=== PATIENT | female | born 1995 | race Caucasian/White ===

== ENCOUNTER → 2024-04-19 12:23 | Outpatient (BNVA) | payer MEDICAID, SELFPAY | PROVIDERS: Family Provider Family Medicine; Visit Provider Nurse Practitioner Family | DX: R30.0 Dysuria (principal) | CPT/HCPCS: 81003 ==

== ENCOUNTER 2025-01-04 20:28 | Emergency (ER) | payer SELFPAY ==
[2025-01-04 20:31] VITALS: BP 168/107; PULSE 87; RESP 16; TEMP 36.5; O2SAT 98; BMI 34.0
[2025-01-04 22:15] LABS: Basophils # 0.1 10^3/uL (0.0-0.1); Basophils % 0.5 %; Eosinophils # 0.2 10^3/uL (0.0-0.8); Eosinophils % 1.9 %; Lymphocytes # 3.1 10^3/uL (0.8-4.8); Lymphocytes % 27.5 %; Mean Corpuscular HGB Conc 34.4 g/dL (30-55); Mean Corpuscular Hemoglobin 30.8 pg (27-33); Mean Corpuscular Volume 89.7 fl (85-98); Mean Platelet Volume 10.1 fL (7.4-10.4); Monocytes # 0.9 10^3/uL (0.2-0.9); Monocytes % 8.3 %; Neutrophils # 6.98 10^3/uL (1.8-7.7); Neutrophils % 61.6 %; Nucleated Red Blood Cells % 0 %; Platelet Count 317 10^3/cmm (157-399); Red Blood Count 4.35 10^6/uL (3.85-5.65); Red Cell Distribution Width 11.9 % (12.1-15.1); White Blood Count 11.32 10^3/uL (3.29-11.43)
[2025-01-04 22:54] LABS: Troponin(5th) Baseline < 6 ng/L (0-10)
[2025-01-04 22:56] LABS: Anion Gap 15.9 (5-19); Blood Urea Nitrogen 13 mg/dL (6-20); Calcium 9.4 mg/dL (8.5-10.5); Carbon Dioxide 24 mmol/L (22-29); Chloride 105 mmol/L (98-107); Creatinine Clr Calc Pharmacy 81.1566; Glomerular Filtration Rate 58.3 mL/min (90-130); Glucose 81 mg/dL (65-115); Osmolality Calculated 291 mOsm/kg (285-295); Potassium 3.9 mmol/L (3.5-5.1); Sodium 141 mmol/L (136-145)
--- NOTE | 2025-01-04 23:13 | ED_ITS ---
HPI - Chest Pain 2 General: Chief Complaint: Chest Pain Stated Complaint: CP believes anxiety Time Seen by Provider: 01/04/25 21:45 History of Present Illness: Patient is a 29-year-old female with history of hypertension, compliant to lisinopril 10 mg daily that presents with chest pressure in the upper central area of her chest x 3 hours. Patient does have consistent ongoing headache, global, and frontal. She has had symptoms on and off with chest pressure and headache that were self resolving over the last 3 days. No shortness of breath, no nausea, no diaphoresis. No family history of early heart disease. Today, her symptoms were ongoing and consistent. Blood pressure at home was quite elevated despite taking her lisinopril. Associated symptoms: Deny abdominal pain, fever(s), nausea, palpitations or vomiting Related Data Previous Rx's ?Medication ?Instructions ?Recorded nitrofurantoin 100 mg PO Q12H 5 days #10 ca ps 04/19/24 monohydrate/macrocrystals 100 mg capsule (Macrobid) clonidine HCl 0.1 mg tablet 0.1 mg PO Q6H PRN hyperten sive 01/05/25 emergency 48 hours #30 tabs Allergies Allergy/AdvReac Type Severity Reaction Status Date / Time No Known Allergies Allergy Verified 04/19/24 12:34 Review of Systems 2 General: Reports: 10 or more systems reviewed and unremarkable except in HPI and below Const: Denies: fever(s), chills or body aches ENMT: Denies: throat pain or nasal discharge Card: Reports: chest pain; Denies: palpitations or dyspnea on exertion GI: Denies: abdominal pain, nausea or vomiting : Denies: flank pain or difficulty voiding Musc: Denies: neck pain, back pain or joint pain Skin/Breast: Denies: rash or pruritus Psych: Denies: anxiety or depression PFSH ED 2 PFSH: Social History Smoking and tobacco/nicotine status: former use of tobacco/nicotine Alcohol intake: never Substance/Drug Use: never Physical Exam 2 Const: COMMON NORMALS: no acute distress and patient oriented x3 HENMT: COMMON NORMALS: normocephalic and atraumatic HEAD & SCALP: n ormocephalic and atraumatic Resp: COMMON NORMALS: normal respiratory effort, No retractions, No use of accessory muscles, clear to auscultation bilaterally and percussion normal A USCULTATION: clear to auscultation bilaterally PERCUSSION: percussion normal Cardio: COMMON NORMALS: regular rate, regular rhythm, S1 normal heart sound present and S2 normal heart sound present RATE: regular rate RHYTHM: r egular rhythm HEART SOUNDS: S1 normal heart sound present and S2 normal heart sound present GI: COMMON NORMALS: Normal to inspection, nondistended, normoactive bowel sounds present, Soft to palpation and non-tender PALPATION: Yes Soft to palpation : COMMON NORMALS: Yes no CVA tenderness BLADDER/KIDNEY EXAM: Yes no CVA tenderness Back/Pelvis: COMMON NORMALS: no CVA tenderness Extremity: COMMON NORMALS: normal to inspection, full ROM, capillary refill normal and no pedal edema Neuro: COMMON NORMALS: patient oriented x3 Psych: COMMON NORMALS: mental status grossly normal and Normal thought process present THOUGHT PROCESS: Normal thought process present Course 2 Vital Signs: Vital signs: Vital Signs Temperature 97.7 F 01/04/25 20:31 Pulse Rate 59 L 01/05/25 01:04 Respiratory Rate 16 01/04/25 20:31 Blood Pressure 135/107 01/05/25 01:04 Pulse Oximetry 98 01/05/25 01:04 Oxygen Delivery Me thod Room Air 01/04/25 20:31 MDM - Chest Pain Medical Decision Making Patient is 29-year-old female with uncontrolled hypertension despite compliance, associated chest pressure without nausea or shortness of breath. I do suspect this is associated with her elevation of blood pressure. Will obtain routine workup with troponin, and repeat EKG. Initial EKG does not show any ST segment elevation. Lab Data 01/04/25 21:56 01/04/25 21:56 Laboratory Results WBC 11.32 10^3/uL (3.29-11.43) 01/04/25 21:56 RBC 4.35 10^6/uL (3.85-5.65) 01/04/25 21:56 Hgb 13.40 g/dL (11.27-16.99) 01/04/25 21:56 Hct 39.0 % (36-47) 01/04/25 21:56 MCV 89.7 fl (85-98) 01/04/25 21:56 MCH 30.8 pg (27-33) 01/04/25 21:56 MCHC 34.4 g/dL (30-55) 01/04/25 21:56 RDW 11.9 % (12.1-15.1) L 01/04/25 21:56 Plt Count 317 10^3/cmm (157-399) 01/04/25 21:56 MPV 10.1 fL (7.4-10.4) 01/04/25 21:56 Neut % (Auto) 61.6 % 01/04/25 21:56 Lymph % (Auto) 27.5 % 01/04/25 21:56 [place] % (Auto) 8.3 % 01/04/25 21:56 Eos % (Auto) 1.9 % 01/04/25 21:56 Baso % (Auto) 0.5 % 01/04/25 21:56 Neut # (Auto) 6.98 10^3/uL (1.8-7.7) 01/04/25 21:56 Lymph # (Auto) 3.1 10^3/uL (0.8-4.8) 01/04/25 21:56 [place] # (Auto) 0.9 10^3/uL (0.2-0.9) 01/04/25 21:56 Eos # (Auto) 0.2 10^3/uL (0.0-0.8) 01/04/25 21:56 Baso # (Auto) 0.1 10^3/uL (0.0-0.1) 01/04/25 21:56 Nucleated RBC % (auto) 0 % 01/04/25 21:56 Nucleated RBCs # 0.0 /100WBC 01/04/25 21:56 Sodium 141 mmol/L (136-145) 01/04/25 21:56 Potassium 3.9 mmol/L (3.5-5.1) 01/04/25 21:56 Chloride 105 mmol/L (98-107) 01/04/25 21:56 Carbon Dioxide 24 mmol/L (22-29) 01/04/25 21:56 Anion Gap 15.9 (5-19) 01/04/25 21:56 BUN 13 mg/dL (6-20) 01/04/25 21:56 Creatinine 1.1 mg/dL (0.5-0.9) H 01/04/25 21:56 GFR Calculation 58.3 mL/min (90-130) L 01/04/25 21:56 Glucose 81 mg/dL (65-115) 01/04/25 21:56 Calculated Osmolality 291 mOsm/kg (285-295) 01/04/25 21:56 Calcium 9.4 mg/dL (8.5-10.5) 01/04/25 21:56 Troponin T Baseline < 6 ng/L (0-10) 01/04/25 21:56 Troponin T 120 Minute < 6.0 ng/L (0-10) 01/05/25 00:03 Delta Troponin T 0 ABS# (0-10) 01/05/25 00:03 All radiology interpretation(s) finalized by discharge EKG Data EKG 1: Interpretation: Sinus rhythm, normal axis, LVH, QTc 400 Computer generated interpretation: Sinus rhythm, moderate intraventricular conduction delay, borderline EKG Discharge Plan Discharge Patient Disposition: Home Clinical Impression: Hypertension, Atypical chest pain Condition: Stable Prescriptions: New clonidine HCl 0.1 mg tablet 0.1 mg PO Q6H PRN (Reason: hypertensive emergency) 2 Days Qty: 30 0RF Rx Instructions: Take for blood pressure >160/>95 No Action nitrofurantoin monohyd/m-cryst [Macrobid] 100 mg capsule 100 mg PO Q12H 5 Days Qty: 10 0RF Rx Instructions: must administer with a meal/food Discharge Orders: Discharge ED (Routine); Ordered 01/05/25 Ordered By: Sharda Martinez Discharge Diet: Low Salt Patient Instructions: DASH Eating Plan (ED), Hypertension (ED) Activity Restrictions/Additional Instructions: as discussed Print Language: Brazilian Coding Level of Care Code ED Community Relations Assistant for Joseg Isabell
[2025-01-04 23:56] VITALS: BP 129/89; PULSE 73; O2SAT 98
--- NOTE | 2025-01-04 23:56 | ECG_ITS ---
[facility] Test Date: 2025-01-04 Pat Name: Tahira Daniels Department: Room: Gender: Female Manager Of Internal: : 1995 Requested By: Gui Hogue Order Number: [id number] Moralez MD: MAMIE DEL RIO Measurements Intervals [place] Rate: 62 P: 41 [place]: 167 QRS: 51 QRSD: 117 T: 50 QT: 402 QTc: 408 Interpretive Statements SINUS RHYTHM MODERATE INTRAVENTRICULAR CONDUCTION DELAY [110+ ms QRS DURATION] No previous ECG available for comparison Electronically Signed On 01-05-2025 23:51:56 CDT by MAMIE DEL RIO [email or web address]
[2025-01-05 00:23] LABS: Troponin 5 2HR < 6.0 ng/L (0-10); Troponin 5 2HR Delta 0 ABS# (0-10)
[2025-01-05 01:04] VITALS: BP 135/107; PULSE 59; O2SAT 98
== END 2025-01-05 01:07 | disposition home or self-care (01) ==
PROVIDERS: Emergency Medicine; Emergency Provider Physician Assistant
DX: R07.89 Other chest pain (principal); I10 Essential (primary) hypertension; Z87.891 Personal history of nicotine dependence
CPT/HCPCS: 36415; 80048; 84484; 85025; 93005; 99284

== ENCOUNTER 2025-07-16 13:40 | Emergency (ER) | payer SELFPAY ==
[2025-07-16 13:44] VITALS: BP 150/96; PULSE 88; RESP 16; TEMP 36.9; O2SAT 100; BMI 33.3
--- NOTE | 2025-07-16 13:50 | ECG_ITS ---
[facility] Date: 2025-07-16 Pat Name: Tahira Daniels Department: Room: Gender: Female Return To Vendor: : 1995 Requested By: Annemarie Barahona Order Number: [id number] Moralez MD: Bonilla Oconnor M.D. Measurements Intervals [place] Rate: 81 P: 51 TN: 158 QRS: 47 QRSD: 115 T: 42 QT: 376 QTc: 437 Interpretive Statements SINUS RHYTHM MODERATE INTRAVENTRICULAR CONDUCTION DELAY [110+ ms QRS DURATION] Compared to ECG 01/04/2025 23:56:08 No significant changes Electronically Signed On 07-16-2025 21:22:34 UNIVERSITY ADMINISTRATIVE ASSISTANT by Bonilla Oconnor M.D. [id number]
--- NOTE | 2025-07-16 14:03 | XRR_ITS ---
PROCEDURE INFORMATION: Exam: XR Chest Exam date and time: 07/16/2025 2:13 PM Age: 29 years old Clinical indication: Chest wall pain; Cp, hbp; Additional info: Chest pain TECHNIQUE: Imaging protocol: Radiologic exam of the chest. Views: 1 view. COMPARISON: No relevant prior studies available. FINDINGS: Lungs: No focal consolidation or other acute appearing pulmonary opacity. Pleural spaces: No significant pleural effusion. No pneumothorax. Heart/Mediastinum: Heart size is upper limits for normal in size given the AP projection. Mediastinal contours are smooth. Bones/joints: No acute osseous abnormality. XR/XR chest 1V portable [id number] IMPRESSION: No acute findings within the chest.
--- NOTE | 2025-07-16 14:09 | ED_ITS ---
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 She has a central left chest pressure. This started about 7 AM. No known cardiac history. No nausea or vomiting. No cough. No upper respiratory symptoms. Says it radiates into her back. Related Data Previous Rx's ?Medication ?Instructions ?Recorded nitrofurantoin 100 mg PO Q12H 5 days #10 ca ps 04/19/24 monohydrate/macrocrystals 100 mg capsule (Macrobid) Allergies Allergy/AdvReac Type Severity Reaction Status Date / Time No Known Allergies Allergy Verified 04/19/24 12:34 Review of Systems 2 Narrative: Constitutional symptoms: Negative except as documented in HPI. Skin symptoms: Negative except as documented in HPI. Eye symptoms: Negative except as documented in HPI. ENMT symptoms: Negative except as documented in HPI. Respiratory symptoms: Negative except as documented in HPI. Cardiovascular symptoms: Negative except as documented in HPI. Gastrointestinal symptoms: Negative except as documented in HPI. Genitourinary symptoms: Negative except as documented in HPI. Musculoskeletal symptoms: Negative except as documented in HPI. Neurologic symptoms: Negative except as documented in HPI. Psychiatric symptoms: Negative except as documented in HPI. Endocrine symptoms: Negative except as documented in HPI. PFSH ED 2 PFSH: Social History Smoking and tobacco/nicotine status: former use of tobacco/nicotine Alcohol intake: never Substance/Drug Use: never Physical Exam 2 Narrative: EXAM NARRATIVE: General: Alert, no acute distress. Skin: Warm, dry. Head: Normocephalic, atraumatic. Neck: Supple, trachea midline. Eye: Extraocular movements are intact. Ears, nose, mouth and throat: mucosa moist. Cardiovascular: Regular, Normal peripheral perfusion. Respiratory: Lungs are clear to auscultation, respirations are non-labored, breath sounds are equal, Symmetrical chest wall expansion. Gastrointestinal: Soft, Nontender, Non distended Musculoskeletal: Normal ROM, no deformity. Neurological: Alert and oriented, No focal neurological deficit observed. Psychiatric: Cooperative, appropriate mood & affect. 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 Patient has a history of hypertension last seen here in the emergency room for hypertension in December. I reviewed the patient's current home meds Patient reports her only medication is lisinopril Alternate historians: None Differential diagnosis for patient with chest pain includes but is not limited to and based on the above HPI, review of systems and physical exam: Pneumonia. unstable angina. angina. Acute coronary syndrome / NH. Pulmonary embolism. Costochondritis / musculoskeletal. Pleurisy. Pericarditis. Esophageal spasm. Pancreatitis. Cholecystitis. Orders placed to evaluate differential diagnosis based on the above differential, HPI and physical exam EKG: Time 1403. Rate 81. Normal sinus rhythm, No ST-T changes, no ectopy, normal CT & QRS intervals, This was reviewed and interpreted by myself the ER physician at 1406 Lab Review: Laboratory results were reviewed and interpreted by myself the emergency room physician. No leukocytosis. No anemia. No renal failure. Serial cardiac markers are negative. Reexamination: Patient remained stable. No increased work of breathing. No altered mental status. No focal motor deficits. Assessment and plan: Chest pain - Discharged home - Discussed plan with patient. Answered any questions. - Evaluation and treatment of this problem were appropriate in the emergency setting. Lab Data 07/16/25 14:13 07/16/25 14:13 Radiology Impressions Chest X-Ray 07/16/25 14:03 IMPRESSION: No acute findings within the chest. Laboratory Results WBC 6.46 10^3/uL (3.29-11.43) 07/16/25 14:13 RBC 4.68 10^6/uL (3.85-5.65) 07/16/25 14:13 Hgb 14.40 g/dL (11.27-16.99) 07/16/25 14:13 Hct 43.1 % (36-47) 07/16/25 14:13 MCV 92.1 fl (85-98) 07/16/25 14:13 MCH 30.8 pg (27-33) 07/16/25 14:13 MCHC 33.4 g/dL (30-55) 07/16/25 14:13 RDW 12.2 % (12.1-15.1) 07/16/25 14:13 Plt Count 340 10^3/cmm (157-399) 07/16/25 14:13 MPV 10.0 fL (7.4-10.4) 07/16/25 14:13 Neut % (Auto) 66.4 % 07/16/25 14:13 Lymph % (Auto) 25.1 % 07/16/25 14:13 [place] % (Auto) 6.3 % 07/16/25 14:13 Eos % (Auto) 1.4 % 07/16/25 14:13 Baso % (Auto) 0.6 % 07/16/25 14:13 Neut # (Auto) 4.29 10^3/uL (1.8-7.7) 07/16/25 14:13 Lymph # (Auto) 1.6 10^3/uL (0.8-4.8) 07/16/25 14:13 [place] # (Auto) 0.4 10^3/uL (0.2-0.9) 07/16/25 14:13 Eos # (Auto) 0.1 10^3/uL (0.0-0.8) 07/16/25 14:13 Baso # (Auto) 0.0 10^3/uL (0.0-0.1) 07/16/25 14:13 Nucleated RBC % (auto) 0 % 07/16/25 14:13 Nucleated RBCs # 0.0 /100WBC 07/16/25 14:13 Sodium 140 mmol/L (136-145) 07/16/25 14:13 Potassium 3.8 mmol/L (3.5-5.1) 07/16/25 14:13 Chloride 102 mmol/L (98-107) 07/16/25 14:13 Carbon Dioxide 26 mmol/L (22-29) 07/16/25 14:13 Anion Gap 15.8 (5-19) 07/16/25 14:13 BUN 11 mg/dL (6-20) 07/16/25 14:13 Creatinine 1.1 mg/dL (0.5-0.9) H 07/16/25 14:13 GFR Calculation 58.3 mL/min (90-130) L 07/16/25 14:13 Glucose 107 mg/dL (65-115) 07/16/25 14:13 Calculated Osmolality 290 mOsm/kg (285-295) 07/16/25 14:13 Calcium 9.6 mg/dL (8.5-10.5) 07/16/25 14:13 Total Bilirubin 0.4 mg/dL (0.15-1.2) 07/16/25 14:13 AST 15 U/L (0-32) 07/16/25 14:13 ALT 12 U/L (0-33) 07/16/25 14:13 Alkaline Phosphatase 61 U/L (35-105) 07/16/25 14:13 Troponin T Baseline < 6 ng/L (0-10) 07/16/25 14:13 Troponin T 60 Minute < 6.0 ng/L (0-10) 07/16/25 15:04 Delta Troponin T 0 ABS# (0-10) 07/16/25 15:04 Total Protein 6.8 g/dL (6.6-8.7) 07/16/25 14:13 Albumin 4.4 g/dL (3.5-5.2) 07/16/25 14:13 Globulin 2.4 g/dL (1.3-4.6) 07/16/25 14:13 All radiology interpretation(s) finalized by discharge Clincial Decision Support The following clinical decision support tools were used to aid in care of the patient HEART Score -> History: Slightly Suspicous, EKG: Normal, Age: Less than 45 yrs, Risk Factors: 1 or 2 Risk Factors, Troponin: Baseline Trop <16 ng/L. Resulting HEART Score: 1. Discharge Plan Discharge Patient Disposition: Home Clinical Impression: Chest pain, Hypertension Condition: Stable Prescriptions: No Action nitrofurantoin monohyd/m-cryst [Macrobid] 100 mg capsule 100 mg PO Q12H 5 Days Qty: 10 0RF Rx Instructions: must administer with a meal/food Discharge Orders: Discharge ED (Routine); Ordered 07/16/25 Ordered By: Annemarie Worrell Discharge Diet: Usual diet Discharge Activity: Increase activity as tolerated Patient Instructions: Chest Pain (ED), Opioid Safety, Pain Management, Patient Portal & Lane Instructions Activity Restrictions/Additional Instructions: Thank you for choosing [facility] for your healthcare needs today. You have been screened and evaluated and felt safe for discharge. Health conditions do change or evolve sometimes and as such it is important that you follow up with your Primary Doctor to be re checked, 3-5 days is a general good time frame for follow up. You are always welcome to return to the ED for re assessment if your symptoms are worsening or you have new concerns. (Please note that included in your discharge packet is information concerning opioid safety and pain management. This information is given to all patients who are discharged from the ER regardless of their discharge diagnosis or the medicines they usually take or are prescribed.) Print Language: Spanish Coding Level of Care Code ED Parts Identification Technician for Xochitl Whyte Heart Score HEART Score Components History: Slightly Suspicous EKG: Normal Age: Less than 45 yrs Risk Factors: 1 or 2 Risk Factors Troponin: Baseline Trop <16 ng/L HEART Score RESULT HEART Score: 1
[2025-07-16 14:23] LABS: Hematocrit 43.1 % (36-47); Hemoglobin 14.40 g/dL (11.27-16.99); Mean Corpuscular HGB Conc 33.4 g/dL (30-55); Mean Corpuscular Hemoglobin 30.8 pg (27-33); Mean Corpuscular Volume 92.1 fl (85-98); Nucleated Red Blood Cells % 0 %; Platelet Count 340 10^3/cmm (157-399); Red Blood Count 4.68 10^6/uL (3.85-5.65); White Blood Count 6.46 10^3/uL (3.29-11.43)
[2025-07-16 14:31] VITALS: BP 160/100; PULSE 88; O2SAT 95
[2025-07-16 14:51] LABS: Alanine Aminotransferase 12 U/L (0-33); Albumin Level 4.4 g/dL (3.5-5.2); Alkaline Phosphatase 61 U/L (35-105); Anion Gap 15.8 (5-19); Aspartate Amino Transferase 15 U/L (0-32); Blood Urea Nitrogen 11 mg/dL (6-20); Calcium 9.6 mg/dL (8.5-10.5); Carbon Dioxide 26 mmol/L (22-29); Chloride 102 mmol/L (98-107); Globulin 2.4 g/dL (1.3-4.6); Glucose 107 mg/dL (65-115); Osmolality Calculated 290 mOsm/kg (285-295); Potassium 3.8 mmol/L (3.5-5.1); Sodium 140 mmol/L (136-145); Total Protein 6.8 g/dL (6.6-8.7)
--- OUTSIDE RECORDS SUMMARY | 2025-07-16 14:52 | XMS_ITS | Encounter Summary ---
Author Organization [facility] Address [address] [place] [address] Care Team Providers Care Health Insurance Sales Agent Name Role Phone Abbi Segundo Primary Care Provider [phone] Encounter Details Date Type Department Care Team (Late st Contact Info) Description 01/19/2005 Emergency [facility] Emergency Department [address] [place] [address] Magnus Chairez MD NO ADDRESS ON FILE ABDOMINAL PAIN UNSPEC SITE (Primary Dx) Social History Tobacco Use Types Packs/Day Years Used Date Smoking Tobacco: Never Assessed Comments Unknown Sex and Gender Information Value Date Recorded Sex Assigned at Not on file 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 Gender Identity Not on file Sexual Orientation Not on file documented as of this encounter Plan of Treatment Not on file documented as of this encounter Procedures Procedure Name Priority Date/Time Associated Diagnosis Comments POC CREATININE Routine 01/19/2005 11:14 PM CDT URINALYSIS MICROSCOPY ONLY Routine 01/19/2005 7:49 PM CDT URINALYSIS W/REFLEX MICROSCOPIC Routine 01/19/2005 7:49 PM CDT CBC WITH DIFFERENTIAL Routine 01/19/2005 6:31 PM CDT documented in this encounter Results * POC CREATININE (01/19/2005 11:14 PM CDT) CREATININE POC 0.8 0.7 - 1.2 mg/dL INTERFACE SYSTEM 01/19/2005 11:1 4 PM CDT Magnus Chairez MD POINT OF CARE TESTING Final Resu lt Performing Organization Address [facility] Phone Number INTERFACE SYSTEM Refer to clinic/hospital department * (ABNORMAL) URINALYSIS (01/19/2005 7:49 PM CDT) COLOR UA Yellow Straw INTERFACE SYSTEM CLARITY UA Clear Clear INTERFACE SYSTEM LEUKOCYTE ESTERASE UA Small(A) NEGATIVE INTERFACE SYSTEM NITRITE UA POSITIVE(A) NEGATIVE INTERFA CE SYSTEM PH UA 6.0 5.0 - 9.0 INTERFACE SYSTEM PROTEIN UA NEGATIVE NEGATIVE INTERFACE SYSTEM GLUCOSE UA NEGATIVE NEGATIVE INTERFACE SYSTEM KETONES UA NEGATIVE NEGATIVE INTERFACE SYSTEM UROBILINOGEN UA 0.2 INTE RFACE SYSTEM BILIRUBIN UA NEGATIVE NEGATIVE INTERFA CE SYSTEM BLOOD UA NEGATIVE NEGATIVE INTERFACE SYSTEM SPECIFIC GRAVITY UA 1.010 1.005 - 1.030 INTERFACE SYSTEM MICRO EXAM Yes(A) No INTERFACE SYSTEM 01/19/2005 7:49 PM CDT Magnus Chairez MD URINE ORDERABLES Final Result Performing Organization Address [facility] Phone Number INTERFACE SYSTEM Refer to clinic/hospital department * (ABNORMAL) URINALYSIS MICROSCOPY ONLY (01/19/2005 7:49 PM CDT) WBC URINE 3-5(A) 0 - 2 INTERFACE SYSTEM RBC UA None Seen 0 - 2 INTERFACE SYSTEM HYALINE CAST None Seen 0 - 2 INTERFA CE SYSTEM BACTERIA UA Few(A) None Seen INTERFAC E SYSTEM 01/19/2005 7:49 PM CDT Magnus Chairez MD URINE ORDERABLES Final Result Performing Organization Address [facility] Phone Number INTERFACE SYSTEM Refer to clinic/hospital department * (ABNORMAL) CBC WITH DIFFERENTIAL (01/19/2005 6:31 PM CDT) WBC 16.6(H) 4.5 - 13.5 K/ul INTERFACE SYSTEM RBC 4.99 4.30 - 5.30 Mil/ul INTERFACE SYSTEM HEMOGLOBIN 14.7(H) 12.0 - 14.4 g/dL INTERFACE SYSTEM HEMATOCRIT 43.7 35.0 - 45.0 % INTERFACE SYSTEM MCV 87.6 78.0 - 102.0 Fl INTERFACE SYSTEM MCH 29.5 26.0 - 32.0 pg INTERFACE SYSTEM MCHC 33.6 33.0 - 35.0 g/dL INTERFACE SYSTEM RDW 12.7 11.0 - 14.5 % INTERFACE SYSTEM PLATELETS 314 140 - 440 K/ul INTERFACE SYSTEM MPV 10.3 8.9 - 12.8 Fl INTERFACE SYSTEM NEUTROPHILS 85.4(H) 42.2 - 75.2 % INTERFACE SYSTEM LYMPHOCYTES 8.8(L) 28.0 - 48.0 % INTERFACE SYSTEM MONOCYTES 5.6(H) 4.0 - 5.0 % INTERFACE SYSTEM EOSINOPHILS 0.1 0.0 - 7.0 % INTERFACE SYSTEM BASOPHILS 0.1 0.0 - 1.0 % INTERFACE SYSTEM NEUTROPHIL ABSOLUTE 14.2(H) 2.0 - 8.0 K/uL INTERFACE SYSTEM LYMPHOCYTE ABSOLUTE 1.5 1.2 - 4.0 K/ul INTERFACE SYSTEM MONOCYTE ABSOLUTE 0.9(H) 0.1 - 0.6 K/ul INTERFACE SYSTEM EOSINOPHIL ABSOLUTE 0.0 0.0 - 0.7 K/ul INTERFACE SYSTEM BASOPHILS ABSOLUTE 0.0 0.0 - 0.2 K/ul INTERFACE SYSTEM PERIPHERAL BLOOD SMEAR REVIEW Automated Diff INTERFACE SYSTEM 01/19/2005 6:31 PM CDT us Magnus Chairez MD HEMATOLOGY ORDERABLES Final Resu lt INTERFACE SYSTEM Refer to clinic/hospital department documented in this encounter Visit Diagnoses Diagnosis Abdominal pain, unspecified site- Primary documented in this encounter Care Teams Health Insurance Sales Agent Relationship Specialty Start Date End Date Abbi Segundo DO [address] [place] [address] PCP - General Family Practice 05/24/17 documented as of this encounter
--- OUTSIDE RECORDS SUMMARY | 2025-07-16 14:52 | XMS_ITS | Clinical Summary ---
Author Organization [facility] Address [address] [facility] Attn: [place] [address] Care Team Providers Care Word Processing Specialist Name Role Phone Abbi Segundo Primary Care Provider [phone]- [phone] Allergies No known active allergies Medications phentermine (ADIPEX P) 37.5 mg tabletIndication s:Severe obesity (BMI 35.0-39.9) with comorbidity (CMS/HCC),Uninte nded weight gain Take 1 Tablet (37.5 mg) by mouth daily before breakfast. 30 Tablet 0 05/24/2017 Active Active Problems Problem Noted Date Diagnosed Date Severe obesity (BMI 35.0-39.9) with comorbidity 05/24/2017 Immunizations Immunization Administration Dates Next Due (M-M-R II/PRIORIX)(12 MO UP) MEASLES, MUMPS AND RUBELLA VIRUS VACCINE, 0.5 ML IM/SUBCUT 02/17/1996 Dt Dtp Dtap Vaccine 05/08/1997, 6,02/17/1996,1995 HIB, Unspecified Formulation 05/08/1997, 06/06/1996,02/17/1996,1995 Hepatitis B Vaccine 06/06/1996,12/22/1995,1994 IPV/OPV 06/06/1996,02/17/1996,12/22/1995 Family History Medical History Relation Name Comments Ovarian Cancer Mother Relation Name Status Comments Father Alive Mother Alive Social History Tobacco Use Types Packs/Day Years Used Date Smoking Tobacco: Former Cigarettes 0 Q uit: 08/11/2012 Smokeless Tobacco: Never Alcohol Use Standard Drinks/Week Comments No 0 (1 standard drink = 0.6 oz pur e alcohol) Comments Unknown Sex and Gender Information Value Date Recorded Sex Assigned at Not on file 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 Gender Identity Not on file Sexual Orientation Not on file Last Filed Vital Signs Vital Sign Reading Time Taken Comments Blood Pressure 122/84 05/24/2017 8:18 AM CDT Pulse 98 05/24/2017 8:18 AM CDT Temperature 36.6 C (97.8 F) 05/24/2017 8:18 AM CDT Respiratory Rate - - Oxygen Saturation - - Inhaled Oxygen Concentration - - Weight 89.4 kg (197 lb) 05/24/2017 8:18 AM CDT Height 162.6 cm (5' 4 ) 05/24/2017 8:18 AM CDT Body Mass Index 33.82 05/24/2017 8:18 AM CDT Plan of Treatment Health Maintenance Due Date Last Done Comments DTAP/TDAP/TD VACCINES (5 - Tdap) 2005 05/08/1997, 06/06/1996, 02/17/1996, Additional history exists HPV/Cotest (21-29) 11/13/2015 CERVICAL CANCER SCREENING 2024 HPV/Cotest (30-65) 2024 PAP SMEAR 2024 INFLUENZA VACCINE (#1) 2025 HEPATITIS B VACCINES Completed 06/06/1996, 12/22/1995, 1994 HPV VACCINES (No Doses Required) Completed Care Teams Word Processing Specialist Relationship Specialty Start Date End Date Abbi Segundo DO [address] [place] [address] PCP - General Family Practice 05/24/17
[2025-07-16 14:53] LABS: Troponin(5th) Baseline < 6 ng/L (0-10)
--- OUTSIDE RECORDS SUMMARY | 2025-07-16 14:53 | XMS_ITS | Clinical Summary ---
Author Organization [facility] Address [address] [address] Phone Care Team Providers Care Lead Section Supervisor Name Role Phone Abbi Segundo Primary Care Provider [phone] Allergies No known active allergies Medications phentermine (ADIPEX P) 37.5 mg tabletIndication s:Severe obesity (BMI 35.0-39.9) with comorbidity (CMS/HCC),Uninte nded weight gain Take 1 Tablet (37.5 mg) by mouth daily before breakfast. 30 Tablet 05/24/2017 Active Active Problems Problem Noted Date [...] = 0.6 oz pur e alcohol) Comments No Sex and Gender Information Value Date Recorded Sex Assigned at Not on file Legal Sex Female 3:40 AM DATA ENTRY Gender Identity Not on file Sexual Orientation Not on file Occupation Industry Job Start Date Job End Date Not on file Not on file Not on file Not on file Last Filed Vital Signs Vital Sign Reading Time Taken Comments Blood Pressure 122/84 05/24/2017 8:18 AM CDT Pulse 98 05/24/2017 8:18 AM CDT Temperature 36.6 C (97.8 F) 05/24/2017 8:18 AM CDT Respiratory Rate 18 08/13/2012 7:56 PM DATA ENTRY Oxygen Saturation 99% 05/24/2017 8:18 AM CDT Inhaled Oxygen Concentration - - Weight 89.4 kg (197 lb) 05/24/2017 8:18 AM CDT Height 162.6 cm (5' 4 ) 05/24/2017 8:18 AM CDT Body Mass Index 33.81 05/24/2017 8:18 AM CDT Plan of Treatment Health Maintenance Due Date Last Done Comments DTAP/TDAP/TD VACCINES (5 - Tdap) 2005 05/08/1997, 06/06/1996, 02/17/1996, Additional history exists HPV/Cotest (21-29) 11/13/2015 Preventative Visit- Commercial 08/01/2024 CERVICAL CANCER SCREENING 2024 HPV/Cotest (30-65) 2024 PAP SMEAR 2024 INFLUENZA VACCINE (#1) 2025 HEPATITIS B VACCINES Completed 06/06/1996, 12/22/1995, 1994 HPV VACCINES (No Doses Required) Completed Goals Goal Patient Goal Type Associated Problems Recent Progress Patient-Stated? Author Weight (lbs) < 68 kg (150 lb) Weight 197 lb(05/24/2017 8:18 AM CDT) No Liz Garcia FNP Note: Attempt to increase activity with simple measures such as parking farther away in the parking lot. Increase activity to 3 times per week for 30 minutes and then increase as tolerated. Monitor portion sizes Weigh weekly Increase protein Make better food choices, decreasing starches, sugars, and saturated fats. Insurance MEDICAID [facility] Member Subscriber Plan / Payer (Ef fective 2016-Present) Name:Tahira Cunningham Relation to Subscriber:Spouse Name:CUNNINGHAMJES Date of :1994 (Home) Address: [address] [place] [id number] Payer ID:Not on file Type:[employer] Address: [facility] [id number] [place] [id number] Care Teams Lead Section Supervisor Relationship Specialty Start Date End Date Abbi Segundo DO [address] [place] [address] PCP - General Family Practice 05/24/17
--- OUTSIDE RECORDS SUMMARY | 2025-07-16 14:53 | XMS_ITS | Data Portability ---
Author Organization [facility], [facility] Address [address] [facility] [address] [place] [address] Care Team Providers Care Positive Printer Operator Name Role Phone VERONIKA DE LEÓN Primary Care Provider Assessment No assessment recorded. Plan of Treatment Reminders Order Date Submit Date Provider Last Modified By Organization Details Last Modified Time Details Appointments None recorded. Lab None recorded. Referral None recorded. Procedures None recorded. Surgeries None recorded. Imaging None recorded. Medication Orders lisinopril 20 mg tablet 2022 023 [facility], [address], [place], [address], 10:15:20 buspirone 10 mg tablet 2022 023 [facility], [address], [place], [address], 10:20:19 lisinopril 20 mg tablet 2022 023 [facility], [address], [place], [address], 12:11:16 Patient TargetsNo targets recorded. Patient InstructionsNo instructions recorded. Reason for Referral None Reported. Problems Name Problem SNOMED Code Status Onset Date Resolution Date Notes Provider Name and Address Organization Details Recorded Time Essential hypertension 44085739 Active 2022 Veronika De León MD [address] [place], [address], [facility] 3 12:05:42 Anxiety 82891218 Active 2022 Veronika De León MD [address] [place], [address], [facility] 3 10:20:23 Problem Notes None recorded. Medical Equipment None Reported. Allergies No known drug allergies Medications Name Sig Start Date Stop Date Status Note LastModified by Organization Details LastModified Time lisinopri l 20 mg tablet Take 1 tablet every day by oral route for 90 days. 2022 active Not Available Not Available Not Avai lable buspirone 10 mg tablet Take 1 tablet twice a day by oral route as needed. 2022 active Not Available Not Available Not Avai lable Vitamin daily 04/15 completed 0; Recorded 8 2:16PM by Elena Vela LPN, Office Visit; Not Available Not Available Not Available Low Dose Aspirin daily 04/15 completed Recorded 8 9:45AM by Carla Walton RN, Office Visit; Refill Quantity: 0; Not Available Not Available Not Available Vitals Date Recorded Body weight Body mass index (BMI) Body height Body temperature Respiratory rate Heart rate Oxygen saturation Systolic And Diastolic Provider Name and Address Organization Details Last Updated DateTime 3 22607.1 g 32.8 kg/m2 165.1 cm 98.7 [degF] 20 /min 74 /min 98 % 148/90 mm[Hg] ESTEPHANIA NUNEZ [facility] 3 11:42:35 Date Recorded Body height Respiratory rate Body mass index (BMI) Body weight Body temperature Heart rate Oxygen saturation Systolic And Diastolic Provider Name and Address Organization Details Last Updated DateTime 3 165.1 cm 20 /min 32.8 kg/m2 83469.1 g 97.7 [degF] 73 /min 99 % 122/78 mm[Hg] PAULA VILLARREAL [facility] 10:08:41 Social History Question Answer Notes LastModified by Organizat ion Details LastModified Time Tobacco Smoking Status Former Smoker ESTEPHANIA calix, [facility] 04/15/2023 11:44:08 Do You Have An Advance Directive? No Information not available 04/15/2023 Do You Wear A Helmet When Biking? Yes Information not available 04/15/2023 Are You Blind Or Do You Have Difficulty Seeing? No Information not available 04/15/2023 What Is Your Level Of Caffeine Consumption? Moderate Information not available 04/15/2023 Are You Deaf Or Do You Have Serious Difficulty Hearing? No Information not available 04/15/2023 What Type Of Diet Are You Following? REGULAR Information not available 04/15/2023 What Is The Highest Grade Or Level Of School You Have Completed Or The Highest Degree You Have Received? [id number] Information not available 04/15/2023 Which Of Your Hands Is Dominant? Right Information not available 04/15/2023 What Is Your Relationship Status? Information not available 04/15/2023 Do You Use Your Seat Belt Or Car Seat Routinely? Yes Information not available 04/15/2023 Do You Participate In Social Media? Yes Information not available 04/15/2023 Have You Recently Traveled Abroad? No Information not available 04/15/2023 Do You Have Difficulty Walking Or Climbing Stairs? No Information not available 04/15/2023 Are You Currently In School? No Information not available 04/15/2023 Do You Have Any Dietary Restrictions? No Information not available 04/15/2023 Sex: Unknown Functional Status Question Answer Note LastModified by Organizat ion Details LastModified Time Do you use any illicit or recreational drugs? No Information not available 04/15/2023 What is your level of alcohol consumption? Occasional Information not available 04/15/2023 Are you currently employed? Yes Information not available 04/15/2023 Are you able to walk independently without assistance or assistive devices? YESWOREST Information not available 04/15/2023 Do you have difficulty doing errands alone? No Information not available 04/15/2023 Are you able to care for yourself independently? Yes Information not available 04/15/2023 Do you have difficulty dressing, bathing, grooming, or toileting? No Information not available 04/15/2023 What is your exercise level? Heavy Information not available 04/15/2023 Mental Status Question Answer Note LastModified by Organizat ion Details LastModified Time Do you feel stressed (tense, restless, nervous, or anxious, or unable to sleep at night)? [id number] Information not available 04/15/2023 Do you have difficulty concentrating, remembering or making decisions? No Information no t available 04/15/2023 Family History Nothing Reported Notes:Pts mom had cancer and currently has diabetes. Medical History No medical history recorded. Gynecological HistoryNo gynecological history recorded. Obstetrics History GPAL:G 0 P 0 0 0 0 Immunizations Vaccine Type Date Status Note Provider Nam e and Address Organization Details Recorded Time Tdap 8 completed ESTEPHANIA calix [facility] 04/15/2023 11:42:42 Influenza, split virus, trivalent, preservative 4 completed Not Available [facility] 05/13/2023 09:58:31 Influenza, split virus, trivalent, preservative 7 completed Not Available [facility] 05/13/2023 09:58:31 Past Encounters Encounter ID Performer Location Encounter Start Date Encounter Closed Date Diagnosis/Indication Diagnosis SNOMED-CT Code Diagnosis ICD10 Code Diagnosis IMO Codes Diagnosis Note [id number] Veronika De León MD [facility] ([facility]) [address] [place] [phone] 04/15/2023 11:19:19 04/15/2023 12:44:40 Essential hypertension 24208102 I10 Patient's blood pressure is in the hypertensi ve range discussed lifestyle changes. We will start lisinopril and the patient should check her blood pressure daily and keep a log. Follow-up in 1 month. Discussed lab work and the patient will go to [facility] to get her lab work prior to her next appointmen t. [id number] Veronika De León MD [facility] ([facility]) [address] [place] [phone] 05/13/2023 09:58:12 05/13/2023 12:16:44 Essential hypertension 68412932 I10 Patient is doing well on lisinopril . We will continue the medication at this time. Patient was encouraged to continue to monitor blood pressure at home. Anxiety 32684088 F41.9 Discussed options for treatment for anxiety. Encouraged patient to consider yoga and possibly therapy. Discussed medication s and the patient would like to try something to do as needed. Patient was agreeable to start buspirone. Health Concerns Section Related Observation LastModified by Organization Detai ls LastModified Time None Recorded Concern Status LastModified by Organization Details LastModified Time None Recorded Advance Directives Directive N: Payers Insurance Date Sequence Insurance Name Policy Number Policy Cowan Covered Member ID Cowan Member ID Guarantor Name 04/15/2023 1 *SELF PAY* Me jael Daniels Notes Date Note Type Note Provider Name and Address Organization Details Recorded Time 04/15/2023 text/html This is a 27-year-old female that presents today to establish care. His biggest concern today is her high blood pressure. Patient states that he has been told her blood pressures been elevated at other appointments and when she checks it at home its been running in the 140s over 90s. Patient denies any significant other medical issues. Veronika De León MD [address] [place] [address], [phone], [facility] 04/15/2023 12:43:53 05/13/2023 text/html This is a 27-year-old female that comes in today for follow-up. Patient states that her blood pressure is doing significantly better on the new medication. She is tolerating without any significant side effects. Other concerns the patient has has to do with anxiety. The patient is struggling with anxiety and it greatly affects her at least 2-3 times weekly. Patient is interested in discussing options for treatment. Veronika De León MD [address] [place] [address], [place], [address], [facility] 05/15/2023 10:57:45 OBGyn Episode No OBEpisode recorded.
--- OUTSIDE RECORDS SUMMARY | 2025-07-16 14:53 | XMS_ITS | Patient Health Record ---
Author Organization [facility] Address [address] [place] [address] Care Team Providers Care Power Plant Engineer Name Role Phone Jordy Cid Primary Care Provider JORDY Bach Unavailable Unavailable Reason For Referral No Information Immunizations Vaccine Route Administration Date Status Comme nts Influenza (whole), CPT 78604 Inactive Unknown 05/31/2019 Administered Social History Social History Additional Details Category Social Info Options Details zzMigrated Social History Migrated Social History Smoking Status:Smokes tobacco daily (finding) Plan Of Treatment Pending Test Test Name Order Date ABORh 50725, 00292 08/29/2019 Antibody Screen 21884 08/29/2019 Basic Metabolic Panel (BMP) 36893 2019 CBC w\o Diff 85497 08/29/2019 Insurance Providers Payer Name Payer Address Payer Phone Subscriber Number Group Number Insured Name Patient Relationship to Insured Coverage Start Date Coverage End Date [place] [address] [place] [phone] [id number] Kye Daniels Spouse - patient is the spouse of the insured
[2025-07-16 15:00] VITALS: BP 147/104; PULSE 88; O2SAT 94
[2025-07-16 15:40] VITALS: BP 131/99; PULSE 86; O2SAT 94
== END 2025-07-16 15:40 | disposition home or self-care (01) ==
PROVIDERS: Emergency Provider Emergency Medicine
DX: R07.9 Chest pain, unspecified (principal); I10 Essential (primary) hypertension; Z87.891 Personal history of nicotine dependence
CPT/HCPCS: 36415; 71045; 80053; 84484; 85025; 93005; 99285